=== PATIENT | female | born 1960 | race Caucasian/White ===

== ENCOUNTER 2020-06-16 20:12 | Emergency (ER) | payer BC ==
[~2020-06-16] VITALS: Ht 154.9 cm; Wt 72.6 kg
[2020-06-16 20:29] VITALS: BP 129/96
--- NOTE | 2020-06-16 20:47 | NUR ---
USING TONOPEN AT BEDSIDE.
--- NOTE | 2020-06-16 20:52 | NUR ---
PATIENT STATES THAT SHE HAS A FRIEND TO DRIVE TO TAKE HER HOME. PATIENT ALSO VERBALIZES UNDERSTANDING OF SEEING OPTHALMOLOGIST TOMORROW.
--- NOTE | 2020-06-16 20:52 | NUR ---
Patient discharged to home in stable condition. Written and verbal after care instructions given. Patient verbalizes understanding of instruction.
== END 2020-06-16 20:54 | disposition home or self-care (01) ==
LOC: ER 20:14
DX: H53.8 Other visual disturbances (principal); J45.909 Unspecified asthma, uncomplicated